=== PATIENT | male | born 1995 | race Caucasian/White ===

== ENCOUNTER 2017-06-08 17:12 | Emergency (ER) | payer OTHER ==
[~2017-06-08] VITALS: Ht 182.9 cm; Wt 69.0 kg
[2017-06-08 17:17] VITALS: TEMP 37.1; Ht 182.9 cm; Wt 69.0 kg
[2017-06-08] MEDS ORDERED: SODIUM CHLORIDE 0.9% 1000ML 1,000 ML IV STA (17:32)
--- NOTE | 2017-06-08 17:33 | EMERGENCY ROOM VISIT NOTE ---
History Report prepared by Marsha: Basilio Posadas Under the Supervision of: Dr. Jose Hughes M.D. First contact with patient: 17:17 Chief Complaint: REFERRED BY DOCTOR Stated Complaint: COUGHING UP BLOOD;CHEST PAIN;DOC REFERRED History of Present Illness The patient is a 22 year old male who presents to the Emergency Room with complaints persistent hemoptysis for the past 3-4 days. The patient was sent from [facility], and the patient additionally has chest pain which was worse with deep inspiration, an elevated D-dimer and platelets, and he had a questionable chest x-ray. He additionally notes that he was coughing up blood in March which went away. The patient has a family history of a stroke. He states that he has no medical history, and he does not take any medications daily. He notes that he occasionally drinks alcohol, and he does not use any tobacco. He denies any abdominal pain. The patient notes that that his parents know that he is in the ED, and he states that it is okay to talk to them. Source of History: patient Onset: 3-4 days ago Position: other (global) Quality: other (hemoptysis) Timing: other (persistent) Associated Symptoms: + chest pain (worse with inspiration), No abdominal pain Review of Systems See HPI for pertinent positives & negatives. A total of 10 systems reviewed and were otherwise negative. Past Medical & Surgical Medical Problems: (1) No chronic problems Family History Stroke Social History Marital Status: single Occupation Status: [employer] Current/Historical Medications Scheduled Amoxicillin & Pot Clavulanate (Augmentin 875-125 mg), 1 TAB PO BID Levofloxacin (Levaquin), 750 MG PO DAILY Allergies Coded Allergies: No Known Allergies (Unverified , 06/08/17) Physical Exam Vital Signs Date Time Temp Pulse Resp B/P (MAP) Pulse Ox O2 Delivery O2 Flow Rate FiO2 06/08/17 20:17 61 18 123/68 100 06/08/17 18:25 69 16 123/67 100 Room Air 06/08/17 17:43 71 06/08/17 17:38 99 Room Air 06/08/17 17:17 37.1 87 18 159/86 99 Physical Exam GENERAL: Patient is a healthy-appearing well-nourished male HEAD: Normocephalic atraumatic EYES: Ocular movements intact pupils equal and react to light OROPHARYNX mucous membranes are moist no exudates present no erythema or edema present NECK: Supple no nuchal rigidity CHEST: Good equal expansion LUNGS: Clear and equal to auscultation CARDIAC: Normal S1 and S2 ABDOMEN: Soft nontender no guarding BACK: No CVA tenderness EXTREMITIES: No pain upon palpation normal muscle strength in all groups no clubbing cyanosis or edema NEURO: Patient is following commands and answering questions appropriately. Alert and oriented x3 Cranial Nerves 2-12 grossly intact Medical Decision & Procedures ER Provider Diagnostic Interpretation: Radiology results as stated below per my review and radiologist interpretation: (CHEST FOR PE) ANGIO WITH CT DOSE: 216.77 mGy.cm HISTORY: Hemoptysis. Dyspnea. TECHNIQUE: Multiaxial CT images of the chest were performed following the intravenous administration of contrast to evaluate the pulmonary arteries. Maximal intensity projection images were also obtained. A dose lowering technique was utilized adhering to the principles of ALARA. COMPARISON STUDY: None. FINDINGS: Thoracic aorta is normal in course and caliber. Pulmonary vasculature enhances appropriately. There are no filling defects. Lower lungs are considered clear. There is a somewhat atypical parenchymal infiltrate in the right mid and upper lung region. This presumably is inflammatory although a small cystic as well as underlying nodular components are present. Follow-up to complete resolution is suggested. Limited evaluation of the upper abdomen is unremarkable. IMPRESSION: 1. Study is negative for pulmonary embolus. 2. Rather dense partially consolidative infiltrate right mid to upper lung 3. Given its somewhat atypical appearance, the possibility of an atypical pneumonitis must be a consideration with close clinical and repeat CT follow-up recommended to ensure complete resolution. The above report was generated using voice recognition software. It may contain grammatical, syntax or spelling errors. Electronically signed by: Brenton Lynch M.D. 06/08/2017 6:17 PM Dictated Date/Time: 06/08/2017 6:09 PM Laboratory Results 06/08/17 17:30 Red Blood Count 5.03, Mean Corpuscular Volume 87.9, Mean Corpuscular Hemoglobin 30.0, Mean Corpuscular Hemoglobin Concent 34.2, Mean Platelet Volume 9.5, Neutrophils (%) (Auto) 79.3, Lymphocytes (%) (Auto) 13.7, Monocytes (%) (Auto) 5.6, Eosinophils (%) (Auto) 0.9, Basophils (%) (Auto) 0.2, Neutrophils # (Auto) 10.86, Lymphocytes # (Auto) 1.88, Monocytes # (Auto) 0.76, Eosinophils # (Auto) 0.12, Basophils # (Auto) 0.03 06/08/17 17:30 Test 06/08/17 17:30 06/08/17 17:40 06/08/17 19:00 White Blood Count 13.69 K/uL (4.8-10.8) Red Blood Count 5.03 M/uL (4.7-6.1) Hemoglobin 15.1 g/dL (14.0-18.0) Hematocrit 44.2 % (42-52) Mean Corpuscular Volume 87.9 fL (80-100) Mean Corpuscular Hemoglobin 30.0 pg (25-34) Mean Corpuscular Hemoglobin Concent 34.2 g/dl (32-36) Platelet Count 465 K/uL (130-400) Mean Platelet Volume 9.5 fL (7.4-10.4) Neutrophils (%) (Auto) 79.3 % Lymphocytes (%) (Auto) 13.7 % Monocytes (%) (Auto) 5.6 % Eosinophils (%) (Auto) 0.9 % Basophils (%) (Auto) 0.2 % Neutrophils # (Auto) 10.86 K/uL (1.4-6.5) Lymphocytes # (Auto) 1.88 K/uL (1.2-3.4) Monocytes # (Auto) 0.76 K/uL (0.11-0.59) Eosinophils # (Auto) 0.12 K/uL (0-0.5) Basophils # (Auto) 0.03 K/uL (0-0.2) RDW Standard Deviation 43.5 fL (36.4-46.3) RDW Coefficient of Variation 13.6 % (11.5-14.5) Immature Granulocyte % (Auto) 0.3 % Immature Granulocyte # (Auto) 0.04 K/uL (0.00-0.02) Prothrombin Time 10.3 SECONDS (9.0-12.0) Prothromb Time International Ratio 1.0 (0.9-1.1) Activated Partial Thromboplast Time 28.7 SECONDS (21.0-31.0) Partial Thromboplastin Ratio 1.1 Est Creatinine Clear Calc Drug Dose 122.3 ml/min Estimated GFR () 134.7 Estimated GFR (Non- 116.2 BUN/Creatinine Ratio 12.5 (10-20) Calcium Level 9.7 mg/dl (8.5-10.1) Total Bilirubin 0.3 mg/dl (0.2-1) Direct Bilirubin < 0.1 mg/dl (0-0.2) Aspartate Amino Transf (AST/SGOT) 15 U/L (15-37) Alanine Aminotransferase (ALT/SGPT) 21 U/L (12-78) Alkaline Phosphatase 133 U/L (45-117) Total Creatine Kinase 72 U/L (39-308) Creatine Kinase MB < 0.5 ng/ml (0.5-3.6) Creatine Kinase MB Ratio (0-3.0) Troponin I < 0.015 ng/ml (0-0.045) Total Protein 9.3 gm/dl (6.4-8.2) Albumin 4.5 gm/dl (3.4-5.0) Lipase 70 U/L (73-393) Monoscreen NEG (NEG) Bedside Hemoglobin 16.0 g/dl (14.0-18.0) Bedside Hematocrit 47 % (42-52) Bedside Sodium 139 mEq/L (135-144) Bedside Potassium 3.7 mEq/L (3.3-5.0) Bedside Chloride 98 mEq/L (101-112) Bedside Total CO2 28 mEq/l (24-31) Anion Gap 17.0 mmol/L (16-25) Bedside Blood Urea Nitrogen 13 mg/dl (7-18) Bedside Creatinine 0.9 mg/dl Bedside Glucose (other) 103 mg/dl (70-99) Bedside Ionized Calcium (Chelle) 1.24 mmol/l Influenza Type A Antigen Neg for Influ A (NEG) Influenza Type B Antigen Neg for Influ B (NEG) Labs reviewed by ED physician. Medications Administered Medications (Trade) Dose Ordered Sig/Juan A Route Start Time Stop Time Status Last Admin Dose Admin Sodium Chloride 1,000 ml @ 999 mls/hr Q1H1M STAT IV 06/08/17 17:32 06/08/17 18:32 DC 06/08/17 17:55 999 MLS/HR Ceftriaxone Sodium (Rocephin Inj) 1 gm NOW STAT IV 06/08/17 18:31 06/08/17 18:33 DC 06/08/17 19:04 1 GM Levofloxacin (Levaquin / D5W) 750 mg NOW STAT IV 06/08/17 18:31 06/08/17 18:33 DC 06/08/17 19:04 750 MG ECG Indication: chest pain Rate (beats per minute): 76 Rhythm: normal sinus Findings: no acute ischemic change, no ectopy, other (Sinus arrhythmia. No ST elevation or depression) Change: Patient's electrocardiogram per my interpretation. ED Course 1716: Past medical records reviewed. The patient was evaluated in room C4. A complete history and physical examination was performed. 173: Sodium Chloride 1000 ml @ 999 mls/hr 183: Levofloxacin 750mg IV and Rocephin 1gm IV 183: I discussed the patient's case with Dr. Shah - Loss Prevention Consultant, and he states that the patient can get a bronch in three days and be discharged home. 1849: Upon reexamination the patient is doing well. I discussed results and treatment plan with the patient. He verbalizes agreement and understanding. The patient is ready for discharge. Medical Decision Differential diagnosis: Etiologies such as cardiac ischemia, aortic dissection, pulmonary embolism, pneumonia, pneumothorax, musculoskeletal, infections, pericarditis, myocarditis , esophageal rupture, gastrointestinal, as well as others were entertained. This is a 22-year-old male who presents emergency department with a lung mass on chest x-ray. In addition the patient has elevation in his d-dimer as well as his platelet count. Based on this information and using shared medical decision making with both the patient and the mother the decision was made to send the patient for CAT scan of the chest. I will note that the patient is afebrile and not tachycardic. In addition the patient has no complaints. He feels well. CAT scan of the chest is concerning for a pneumonia however I felt that the patient needed a bronchoscopy. For this reason I did discuss this case with the ICU however the patient would not be a blood have a bronch until Sunday. Using this information and again using shared medical decision making with the family we made the decision to try and treat this with antibiotics and to have the patient report back for a bronchoscopy as an outpatient. This was discussed with case management in order to get the patient in sooner. In the meantime the patient was started on Rocephin and Levaquin and I will continue him on Augmentin and Levaquin at home. Patient and mother were in agreement with the treatment plan. Medication Reconcilliation Current Medication List: was personally reviewed by me Blood Pressure Screening Patient's blood pressure: Elevated blood pressure Blood pressure disposition: Elevated BP felt to be situational Consults Time Called: 1831 Consulting Physician: Dr. Shah Returned Call: 1833 I discussed the patient's case with Dr. Shah - Loss Prevention Consultant, and he states that the patient can get a bronch in three days and be discharged home. Impression Primary Impression: Pneumonia Scribe Attestation The scribe's documentation has been prepared under my direction and personally reviewed by me in its entirety. I confirm that the note above accurately reflects all work, treatment, procedures, and medical decision making performed by me. Departure Information Dispostion Home / Self-Care Prescriptions Levofloxacin (Levaquin) 750 Mg Tab 750 MG PO DAILY for 5 Days, #5 TAB Prov: Jose Hughes MD 06/08/17 Amoxicillin & Pot Clavulanate (Augmentin 875-125 mg) 1 Tab Tab 1 TAB PO BID for 10 Days, #20 TAB Prov: Jose Hughes MD 06/08/17 Referrals No Doctor, Assigned (PCP) Forms HOME CARE DOCUMENTATION FORM, IMPORTANT VISIT INFORMATION, WORK / SCHOOL INSTRUCTIONS Patient Instructions [facility] Additional Instructions Need follow up with Central Scheduling to have bronch done You have been examined and treated today on an emergency basis only. This is not a substitute for, or an effort to provide, complete comprehensive medical care. It is impossible to recognize and treat all injuries or illnesses in a single emergency department visit. It is therefore important that you follow up closely with your PCP. Call as soon as possible for an appointment. Thank you for your time and consideration. I look forward to speaking with you again soon. Please don't hesitate to call us if you have any questions. Problem Qualifiers Primary Impression: Pneumonia Pneumonia type: due to unspecified organism Laterality: right Lung location : unspecified part of lung Qualified Codes: J18.9 - Pneumonia, unspecified organism
[2017-06-08 17:38] VITALS: O2SAT 99
[2017-06-08] MEDS ORDERED: OPTIRAY 320 IV PRN (17:45)
[2017-06-08 17:52] LABS: ISTAT CREATININE 0.9 mg/dl; ISTAT IONIZED CALCIUM 1.24 mmol/l; ISTAT POTASSIUM 3.7 mEq/L (3.3-5.0)
[2017-06-08 17:54] LABS: BASO % 0.2 %; BASO ABS # 0.03 K/uL (0-0.2); EOS % 0.9 %; EOS ABS # 0.12 K/uL (0-0.5); HEMATOCRIT 44.2 % (42-52); HEMOGLOBIN 15.1 g/dL (14.0-18.0); IG# 0.04 K/uL (0.00-0.02); LYMPH % 13.7 %; LYMPH ABS # 1.88 K/uL (1.2-3.4); MEAN CELL VOLUME 87.9 fL (80-100); MEAN CORPUSCULAR HGB CONC 34.2 g/dl (32-36); MEAN PLATELET VOLUME 9.5 fL (7.4-10.4); MONO % 5.6 %; MONO ABS # 0.76 K/uL (0.11-0.59); NEUT % 79.3 %; NEUT ABS # 10.86 K/uL (1.4-6.5); PLATELET COUNT 465 K/uL (130-400); RED CELL DISTRIBUTION WIDTH CV 13.6 % (11.5-14.5); RED CELL DISTRIBUTION WIDTH SD 43.5 fL (36.4-46.3); WHITE BLOOD COUNT 13.69 K/uL (4.8-10.8)
[2017-06-08 18:01] LABS: PTT PATIENT 28.7 SECONDS (21.0-31.0)
[2017-06-08 18:14] LABS: ALBUMIN 4.5 gm/dl (3.4-5.0); ALT/SGPT 21 U/L (12-78); BLOOD UREA NITROGEN 12 mg/dl (7-18); CALCIUM 9.7 mg/dl (8.5-10.1); CARBON DIOXIDE 28 mmol/L (21-32); CREATININE 0.94 mg/dl (0.60-1.40); GLUCOSE 94 mg/dl (70-99); LIPASE 70 U/L (73-393); POTASSIUM 3.6 mmol/L (3.5-5.1); SODIUM 134 mmol/L (136-145)
--- NOTE | 2017-06-08 18:18 | DIAGNOSTIC IMAGING REPORT ---
(CHEST FOR PE) ANGIO WITH CT DOSE: 216.77 mGy.cm HISTORY: Hemoptysis. Dyspnea. TECHNIQUE: Multiaxial CT images of the chest were performed following the intravenous administration of contrast to evaluate the pulmonary arteries. Maximal intensity projection images were also obtained. A dose lowering technique was utilized adhering to the principles of ALARA. COMPARISON STUDY: None. FINDINGS: Thoracic aorta is normal in course and caliber. Pulmonary vasculature enhances appropriately. There are no filling defects. Lower lungs are considered clear. There is a somewhat atypical parenchymal infiltrate in the right mid and upper lung region. This presumably is inflammatory although a small cystic as well as underlying nodular components are present. Follow-up to complete resolution is suggested. Limited evaluation of the upper abdomen is unremarkable. IMPRESSION: 1. Study is negative for pulmonary embolus. 2. Rather dense partially consolidative infiltrate right mid to upper lung 3. Given its somewhat atypical appearance, the possibility of an atypical pneumonitis must be a consideration with close clinical and repeat CT follow-up recommended to ensure complete resolution. The above report was generated using voice recognition software. It may contain grammatical, syntax or spelling errors. Electronically signed by: Brenton Lynch M.D. 06/08/2017 6:17 PM Dictated Date/Time: 06/08/2017 6:09 PM
[2017-06-08 18:19] LABS: ALKALINE PHOSPHATASE 133 U/L (45-117); AST/SGOT 15 U/L (15-37); CKMB < 0.5 ng/ml (0.5-3.6); TOTAL PROTEIN 9.3 gm/dl (6.4-8.2)
[2017-06-08] MEDS ORDERED: LEVAQUIN 750MG / 150ML D5W IV STA (18:31)
[2017-06-08] MEDS ORDERED: CEFTRIAXONE SOD INJ 1 GM ADDVIAL IV STA (18:31)
[2017-06-08] MEDS ORDERED: AMOX875T PO (18:51)
[2017-06-08] MEDS ORDERED: LEVO1TAB35 PO (18:51)
[2017-06-08 20:03] LABS: INFLUENZA B ANTIGEN Neg for Influ B (NEG)
[2017-06-08 20:17] VITALS: BP 123/68; PULSE 61; O2SAT 100
[2017-06-11 16:35] LABS: EBV EARLY ANTIGEN AB < 9.00 U/ML
== END 2017-06-08 20:21 | disposition home or self-care (01) ==
LOC: C.EDC 17:33
DX: R91.8 Other nonspecific abnormal finding of lung field (principal); R04.2 Hemoptysis; R07.9 Chest pain, unspecified; R79.1 Abnormal coagulation profile; R79.89 Other specified abnormal findings of blood chemistry; R03.0 Elevated blood-pressure reading, without diagnosis of hypertension; Z82.3 Family history of stroke

== ENCOUNTER → 2017-06-20 | Outpatient (CLI) | payer OTHER ==
[2017-06-20 15:36] LABS: BASO % 0.5 %; BASO ABS # 0.02 K/uL (0-0.2); EOS % 2.2 %; EOS ABS # 0.09 K/uL (0-0.5); HEMATOCRIT 42.5 % (42-52); HEMOGLOBIN 14.9 g/dL (14.0-18.0); LYMPH % 37.3 %; LYMPH ABS # 1.54 K/uL (1.2-3.4); MEAN CELL VOLUME 85.3 fL (80-100); MEAN CORPUSCULAR HEMOGLOBIN 29.9 pg (25-34); MEAN CORPUSCULAR HGB CONC 35.1 g/dl (32-36); MEAN PLATELET VOLUME 9.7 fL (7.4-10.4); MONO % 8.7 %; MONO ABS # 0.36 K/uL (0.11-0.59); NEUT % 51.3 %; NEUT ABS # 2.12 K/uL (1.4-6.5); PLATELET COUNT 422 K/uL (130-400); RED CELL DISTRIBUTION WIDTH CV 13.6 % (11.5-14.5); RED CELL DISTRIBUTION WIDTH SD 42.3 fL (36.4-46.3); WHITE BLOOD COUNT 4.13 K/uL (4.8-10.8)
== END | disposition home or self-care (01) ==
LOC: C.LAB1850 13:58
PROVIDERS: ATTEND Internal Medicine Pulmonary Disease
DX: R04.2 Hemoptysis (principal); R07.9 Chest pain, unspecified; R79.89 Other specified abnormal findings of blood chemistry

== ENCOUNTER → 2017-07-11 | Outpatient (CLI) | payer OTHER ==
--- NOTE | 2017-07-11 14:39 | DIAGNOSTIC IMAGING REPORT ---
CHEST 2 VIEWS ROUTINE CLINICAL HISTORY: R04.2 [id number] Chest [id number] hemoptysis. Dyspnea. COMPARISON STUDY: CT 06/08/2017 FINDINGS: Somewhat diminished infiltrative process of the right mid lung although residual change remains combine with a somewhat nodular component. Lungs otherwise remain clear. Diaphragms smooth. Given the greater residual component a repeat CT of the chest is suggested as follow-up. IMPRESSION: 1. Mild improvement of a somewhat atypical infiltrative process right midlung. 2. Moderate residual with an associated nodular component. 3. Repeat CT of chest is suggested as follow-up. The above report was generated using voice recognition software. It may contain grammatical, syntax or spelling errors. Electronically signed by: Brenton Lynch M.D. 07/11/2017 2:38 PM Dictated Date/Time: 07/11/2017 2:36 PM
== END | disposition home or self-care (01) ==
LOC: C.RAD1850 14:27
PROVIDERS: ATTEND Internal Medicine Pulmonary Disease
DX: R04.2 Hemoptysis (principal); R07.9 Chest pain, unspecified

== ENCOUNTER 2017-08-10 11:29 | Day surgery (SDC) | payer OTHER ==
[2017-07-31 08:28] VITALS: BMI 21.0
[2017-07-31 09:30] LABS: BASO % 0.7 %; BASO ABS # 0.03 K/uL (0-0.2); EOS % 3.1 %; EOS ABS # 0.14 K/uL (0-0.5); HEMATOCRIT 43.7 % (42-52); HEMOGLOBIN 15.4 g/dL (14.0-18.0); IG# 0.01 K/uL (0.00-0.02); LYMPH % 40.6 %; LYMPH ABS # 1.81 K/uL (1.2-3.4); MEAN CELL VOLUME 85.5 fL (80-100); MEAN CORPUSCULAR HEMOGLOBIN 30.1 pg (25-34); MEAN CORPUSCULAR HGB CONC 35.2 g/dl (32-36); MEAN PLATELET VOLUME 9.5 fL (7.4-10.4); MONO % 11.9 %; MONO ABS # 0.53 K/uL (0.11-0.59); NEUT % 43.5 %; NEUT ABS # 1.94 K/uL (1.4-6.5); PLATELET COUNT 308 K/uL (130-400); RED CELL DISTRIBUTION WIDTH CV 13.6 % (11.5-14.5); RED CELL DISTRIBUTION WIDTH SD 42.3 fL (36.4-46.3); WHITE BLOOD COUNT 4.46 K/uL (4.8-10.8)
[2017-07-31 09:38] LABS: PTT PATIENT 27.3 SECONDS (21.0-31.0)
[2017-07-31 09:39] LABS: ALBUMIN 4.2 gm/dl (3.4-5.0); CALCIUM 9.4 mg/dl (8.5-10.1); CREATININE 0.92 mg/dl (0.60-1.40); POTASSIUM 4.1 mmol/L (3.5-5.1)
[2017-07-31 09:51] LABS: TOTAL PROTEIN 8.2 gm/dl (6.4-8.2)
[~2017-08-10] VITALS: Ht 182.9 cm; Wt 71.0 kg
--- NOTE | 2017-08-10 06:40 | History and Physical ---
History & Physical Date of Service Aug 10, 2017. History & Physical 22-year-old male here for EBUS/flexible bronchoscopic evaluation of hemoptysis: Patient was last seen by Dr. Raul Falcon. He has exhibited initially hemoptysis was started on Levaquin. I prescribed an additional 5 days of Levaquin and had a return in 4 weeks with a follow-up chest x-ray. He returns today stating that his cough has totally resolved. He has no pleuritic pain or shortness of breath and denies fevers chills or sweats. 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 He did relate that his cough had persisted from September until this most recent bout that resolved with Levaquin therapy. On 06/20/2017 patient's white count was 4000 H&H 14.9 and 42.5. Chest x-ray on 07/11/[address] scan of 06/08/2017 perhaps show some mild improvement but this still persistent residual with associated nodular component of this atypical infiltrative process involving the right mid lung field. In review of the CT scan with myself, Dr. Adhikari, and Dr. Jewel Caballero a vigorous discussion ensued. There was dense consolidative infiltrate involving the right mid to upper lung zone with an unusual fissure perhaps suggesting and accessory segment or lobe that appeared hyperlucent and oligemic compared to the rest of the lung. Many of the bronchial tubes looked impacted with liquid to less dense material. 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 The reason the patient is asymptomatic is we do not believe these bronchial tubes communicate outside that accessory segment or lobe. Certainly through the [place] there can be communication of infected material. The x-rays were reviewed with the patient. Active Problems 1. Bronchopneumonia (J18.0) 2. Chest pain (R07.9) 3. Cough (R05) 4. Elevated d-dimer (R79.89) 5. Hemoptysis (R04.2) Family History 1. Family history of cerebrovascular accident (CVA) (Z82.3) Social History Never smoker Social alcohol use (Z78.9) Allergies 1. No Known Drug Allergies CHEST 2 VIEWS ROUTINE IMPRESSION: 1. Mild improvement of a somewhat atypical infiltrative process right midlung. 2. Moderate residual with an associated nodular component. 3. Repeat CT of chest is suggested as follow-up. Vital Signs Blood Pressure: 124 / 60 Respiration: 16 Heart Rate: 69 Temperature: 98.4 F O2 Saturation: 98, RA Recorded: 17Jul2017 02:36PM Weight: 155 lb Physical Exam Constitutional General appearance: No acute distress, well appearing and well nourished. Eyes Conjunctiva and lids: No swelling, erythema, or discharge. Pupils and irises: Equal, round and reactive to light. Ears, Nose, Mouth, and Throat External inspection of ears and nose: Normal. Otoscopic examination: Tympanic membrance translucent with normal light reflex. Canals patent without erythema. Oropharynx: Normal with no erythema, edema, exudate or lesions. Pulmonary Respiratory effort: No increased work of breathing or signs of respiratory distress. Auscultation of lungs: Clear to auscultation. Cardiovascular Palpation of heart: Normal PMI, no thrills. Auscultation of heart: Normal rate and rhythm, normal S1 and S2, without murmurs. Examination of extremities for edema and/or varicosities: Normal. Abdomen Abdomen: Non-tender, no masses. Liver and spleen: No hepatomegaly or splenomegaly. Lymphatic Palpation of lymph nodes in neck: No lymphadenopathy. Musculoskeletal Gait and station: Normal. Digits and nails: Normal without clubbing or cyanosis. Inspection/palpation of joints, bones, and muscles: Normal. Skin Skin and subcutaneous tissue: Normal without rashes or lesions. Neurologic Cranial nerves: Cranial nerves 2-12 intact. Reflexes: 2+ and symmetric. Sensation: No sensory loss. Psychiatric Orientation to person, place and time: Normal. Mood and affect: Normal.
[~2017-08-10 11:29] MED LIST: LACTATED RINGER'S 1000ML 1,000 ML IV SCH
[2017-08-10 11:48] VITALS: BP 146/93; PULSE 87; TEMP 37; O2SAT 97; Ht 182.9 cm; Wt 71.0 kg
[2017-08-10] MEDS ORDERED: ONDANSETRON INJ 2 MG/ML 2 ML VIAL IV PRN (12:45)
[2017-08-10] MEDS ORDERED: KETOROLAC TROMETHAMINE 30 MG/ML VIAL IV. PRN (12:45)
[2017-08-10] MEDS ORDERED: ATROPINE SULFATE 0.1 MG/ML 5ML SYR IV PRN (12:45)
[2017-08-10] MEDS ORDERED: ONDANSETRON INJ 2 MG/ML 2 ML VIAL ONE (12:46)
[2017-08-10] MEDS ORDERED: PROPOFOL IV EMULSION 10 MG/ML 20 ML VIAL IV ONE (12:46)
[2017-08-10] MEDS ORDERED: MIDAZOLAM HCL 1 MG/ML 2ML VIAL ONE (12:46)
[2017-08-10] MEDS ORDERED: LIDOCAINE HCL 2% 2 ML VIAL (20MG/ML) ONE (12:46)
[2017-08-10] MEDS ORDERED: DEXAMETHASONE SOD INJ 4 MG/ML VIAL ONE (12:46)
[2017-08-10] MEDS ORDERED: FENTANYL CITRATE INJ 50 MCG/1 ML 2 ML VIAL ONE (12:46)
--- NOTE | 2017-08-10 13:53 | History & Physical Bridge Note ---
H&P Re-Evaluation Bridge Note: I have examined the patient, reviewed the History & Physical and in the interval since the performance of the History & Physical I have noted the following changes of clinical significance: No changes noted
--- NOTE | 2017-08-10 13:53 | Bronchoscopy Procedure Note ---
Bronchoscopy Procedure Note Procedure: Flexible-Bronchoscopy, EBUS, FNA, BAL Consent: Obtained through the patient placed into the chart Pre-Procedural Dx: Bronchial atresia Post-Procedural Dx: Bronchial atresia Analgesia: GETA Sedation: GETA Procedure: The Olympus video bronchoscope and EBUS scope were used for this procedure Initially the flexible bronchoscope was used for evaluation of the airways. An LMA was used for this procedure and properly positioned Vocal Cords: Anatomically WNL Sub-Glottis & Trachea: Anatomically WNL Rajani: Anatomically within normal limits Right bronchial tree: Right mainstem bronchus: Anatomically within normal limits Right upper lobe: Anatomically within normal limits Bronchus intermedius: Anatomically within normal limits Right middle lobe: Anatomically within normal limits Right lower lobe: Anatomically within normal limits Findings: No significant findings noted Left bronchial tree: Left mainstem bronchus: Anatomically within normal limits Left upper lobe: Anatomically within normal limits Lingula: Anatomically within normal limits Left lower lobe: Anatomically within normal limits Findings: No significant findings noted EBUS/JUAN FRANCISCO: FNA Temitope Stations: 7: # of passes 3 BAL: Right upper lobe EBL: None Complications: None Follow-up: PACU
--- NOTE | 2017-08-10 13:56 | Discharge Instructions ---
Discharge Instructions Date of Service Aug 10, 2017. Admission Reason for Admission: Bronchopneumonia, Hemoptysis, Abnormal Imaging Discharge Discharge Diagnosis / Problem: Bronchial atresia Discharge Goals Goal(s): Diagnostic testing Activity Recommendations Activity Limitations: resume your previous activity Exercise/Sports Limitations: as tolerated Driving or Machine Use: resume 1 day after discharge . Instructions / Follow-Up Instructions / Follow-Up With Dr. Moses Falcon in the pulmonary clinic as well as Dr. Daren Vazquez from thoracic surgery Current Hospital Diet Patient's current hospital diet: Discharge Diet Recommended Diet: Regular Diet Procedures Procedures Performed: Flexible Bronchoscopy, Bronchial Washings. Endobronchial ultrasound, Fine Needle Aspiration Pending Studies Studies pending at discharge: no Medical Emergencies . Who to Call and When: Medical Emergencies: If at any time you feel your situation is an emergency, please call 911 immediately. . Non-Emergent Contact Non-Emergency issues call your: [employer] Operator Call Non-Emergent contact if: temperature is above 101 . . "Provider Documentation" section prepared by Alexis Adhikari. .
[2017-08-10 14:40] VITALS: BP 126/67; PULSE 89; TEMP 36.6; O2SAT 98
--- NOTE | 2017-08-10 15:12 | Anesthesiology Progress Note ---
Anesthesia Post Op Note Date & Time Aug 10, 2017 at 15:11 Vital Signs Pain Intensity: 0 Vital Signs Past 12 Hours Date Time Temp Pulse Resp B/P (MAP) Pulse Ox O2 Delivery O2 Flow Rate FiO2 08/10/17 14:40 36.6 89 16 126/67 98 Room Air 08/10/17 14:34 36.4 98 Room Air 08/10/17 14:32 86 19 08/10/17 14:32 80 19 99 08/10/17 14:30 132/83 08/10/17 14:27 82 16 08/10/17 14:27 83 16 97 08/10/17 14:25 135/88 08/10/17 14:22 92 16 100 08/10/17 14:22 91 16 08/10/17 14:21 93 15 99 08/10/17 14:21 94 15 08/10/17 14:20 123/78 08/10/17 14:16 95 17 99 08/10/17 14:16 95 17 08/10/17 14:15 131/94 08/10/17 14:11 92 20 98 08/10/17 14:11 90 20 08/10/17 14:10 71 15 08/10/17 14:10 71 15 116/71 99 08/10/17 14:05 68 15 08/10/17 14:05 68 15 100/63 97 08/10/17 14:01 104/62 08/10/17 14:00 36.1 68 16 104/62 98 Oxymask 10 08/10/17 14:00 68 08/10/17 14:00 68 98 08/10/17 11:48 37.0 87 20 146/93 (110) 97 Room Air Notes Mental Status: alert / awake / arousable, participated in evaluation Pt Amnestic to Procedure: Yes Nausea / Vomiting: adequately controlled Pain: adequately controlled Airway Patency, RR, SpO2: stable & adequate BP & HR: stable & adequate Hydration State: stable & adequate Anesthetic Complications: no major complications apparent
[2017-08-10 15:15] VITALS: BP 111/70; PULSE 64; TEMP 36.5; O2SAT 98
[2017-08-10 15:45] VITALS: BP 108/68; PULSE 65; TEMP 36.8; O2SAT 98
[2017-08-10 16:15] VITALS: BP 104/74; PULSE 69; TEMP 37; O2SAT 98
[2017-08-10 16:45] VITALS: O2SAT 98
== END 2017-08-10 16:50 | disposition home or self-care (01) ==
LOC: C.ACU 11:29
PROVIDERS: ATTEND Internal Medicine Critical Care Medicine
DX: R04.2 Hemoptysis (principal); J18.0 Bronchopneumonia, unspecified organism; R07.9 Chest pain, unspecified; R05 Cough; R79.89 Other specified abnormal findings of blood chemistry; Z82.3 Family history of stroke; Q32.4 Other congenital malformations of bronchus